=== PATIENT | female | born 1995 | race Two or more races ===

== ENCOUNTER 2016-10-13 07:06 | Emergency (ER) | payer BC, OTHER ==
[2016-10-13 07:12] VITALS: RESP 18; TEMP 98.2
[2016-10-13] MEDS ORDERED: SODIUM CHLORIDE 0.9% 500 ML IV ONE (08:15)
[2016-10-13] MEDS ORDERED: ACETAMINOPHEN IV (For NPO) 1,000 MG in EMPTY BAG 1 BAG IVPB STA (08:16)
--- NOTE | 2016-10-13 08:22 | ED ---
Female Urogenital HPI - General Chief complaint: Vaginal Bleeding Stated complaint: Poss.miscarriage Time Seen by Provider: 10/13/16 07:30 Source: patient, family, RN notes reviewed Mode of arrival: ambulatory Limitations: no limitations - History of Present Illness Initial comments: This is a 21-year-old female who is currently approximately 8-9 weeks who states she woke up this morning around 6 AM with the feeling of wetness in her vaginal region she looked at it was bright and dark red blood. He's had some lower abdominal cramps that are mild nature no dysuria no hematuria no nausea vomiting diarrhea or other symptoms. This is her first . She states she did have a evaluation and her beta number was [phone] I had done apparently yesterday. No other complaints at this time MD Complaint: vaginal bleeding Last Menstrual Period: 08/19/16 - Related Data Home Medications Medication Instructions Recorded Confirmed Gummies 2 tab PO DAILY 10/13/16 10/13/16 Allergies Allergy/AdvReac Type Severity Reaction Status Date / Time peanut Allergy Anaphylaxis Verified 10/13/16 07:36 procaine HCl [From Novocain] Allergy Swelling Verified 10/13/16 07:36 Review of Systems ROS Statement: Those systems with pertinent positive or pertinent negative responses have been documented in the HPI. ROS Other: All systems not noted in ROS Statement are negative. Past Medical History Past Medical History: No Reported History History of Any Multi-Drug Resistant Organisms: None Reported Past Surgical History: Cholecystectomy Past Psychological History: No Psychological Hx Reported Smoking Status: Former smoker Past Alcohol Use History: Occasional Past Drug Use History: None Reported General Exam - General Exam Comments Initial Comments: This is a well-developed well-nourished awake alert oriented 3 female Limitations: no limitations General appearance: alert, in no apparent distress Head exam: Present: atraumatic, normocephalic, normal inspection Eye exam: Present: normal appearance, PERRL, EOMI. Absent: scleral icterus, conjunctival injection, periorbital swelling ENT exam: Present: normal exam, mucous membranes moist Neck exam: Present: normal inspection. Absent: tenderness, meningismus, lymphadenopathy Respiratory exam: Present: normal lung sounds bilaterally. Absent: respiratory distress, wheezes, rales, rhonchi, stridor Cardiovascular Exam: Present: regular rate, normal rhythm, normal heart sounds. Absent: systolic murmur, diastolic murmur, rubs, gallop, clicks GI/Abdominal exam: Present: soft, tenderness (Very mild lower suprapubic tenderness to palpation no guarding no rebound), normal bowel sounds. Absent: distended, guarding, rebound, rigid, mass, bruit, pulsatile mass, hernia Rectal exam: Present: deferred External exam: Present: normal external exam Speculum exam: Present: vaginal bleeding (The cervical os appears be closer is some bloody discharge noted. No cervical motion tenderness. The cervix appears be normal and no evidence of any abnormal discharges other than the blood.) Extremities exam: Present: normal inspection, full ROM, normal capillary refill. Absent: tenderness, pedal edema, joint swelling, calf tenderness Back exam: Present: normal inspection Neurological exam: Present: alert, oriented X3, CN II-XII intact Psychiatric exam: Present: normal affect, normal mood Skin exam: Present: warm, dry, intact, normal color. Absent: rash Course Vital Signs 10/13/16 07:10 Temperature 98.2 F Pulse Rate 89 Respiratory 18 Rate Blood Pressure 128/72 O2 Sat by Pulse 100 Oximetry Medical Decision Making - Medical Decision Making A patient will be discharged to follow-up with her EXPLOSIVE ORDNANCE DISPOSAL SPECIALIST who is in [facility]. - Lab Data Result diagrams: 10/13/16 08:00 10/13/16 08:00 Lab Results 10/13/16 10/13/16 10/13/16 Range/Units 08:00 08:00 08:00 WBC 10.1 (3.8-10.6) k/uL RBC 4.63 (3.80-5.40) m/uL Hgb 14.6 (11.4-16.0) gm/dL Hct 42.9 (34.0-46.0) % MCV 92.7 (80.0-100.0) fL MCH 31.5 (25.0-35.0) pg MCHC 34.0 (31.0-37.0) g/dL RDW 12.4 (11.5-15.5) % Plt Count 297 (150-450) k/uL Neutrophils % 70 % Lymphocytes % 21 % Monocytes % 6 % Eosinophils % 1 % Basophils % 1 % Neutrophils # 7.1 (1.3-7.7) k/uL Lymphocytes # 2.1 (1.0-4.8) k/uL Monocytes # 0.6 (0-1.0) k/uL Eosinophils # 0.1 (0-0.7) k/uL Basophils # 0.1 (0-0.2) k/uL Sodium 139 (137-145) mmol/L Potassium 4.1 (3.5-5.1) mmol/L Chloride 105 (98-107) mmol/L Carbon Dioxide 22 (22-30) mmol/L Anion Gap 12 mmol/L BUN 9 (7-17) mg/dL Creatinine 0.71 (0.52-1.04) mg/dL Est GFR (MDRD) Af Amer >60 (>60 ml/min/1.73 sqM) Est GFR (MDRD) Non-Af >60 (>60 ml/min/1.73 sqM) Glucose 83 (74-99) mg/dL Calcium 9.4 (8.4-10.2) mg/dL Total Bilirubin 0.5 (0.2-1.3) mg/dL AST 28 (14-36) U/L ALT 57 H (9-52) U/L Alkaline Phosphatase 75 (38-126) U/L Total Protein 6.9 (6.3-8.2) g/dL Albumin 4.0 (3.5-5.0) g/dL HCG, Quant 59490.4 mIU/mL Urine Color Yellow Urine Appearance Clear (Clear) Urine pH 5.5 (5.0-8.0) Ur Specific [place] 1.018 (1.001-1.035) Urine Protein Negative (Negative) Urine Glucose (UA) Negative (Negative) Urine Ketones Negative (Negative) Urine Blood Moderate H (Negative) Urine Nitrate Negative (Negative) Urine Bilirubin Negative (Negative) Urine Urobilinogen <2.0 (<2.0) mg/dL Ur Leukocyte Esterase Negative (Negative) Urine RBC <1 (0-5) /hpf Urine WBC 1 (0-5) /hpf Ur Squamous Epith Cells 1 (0-4) /hpf Urine Mucus Rare H (None) /hpf Blood Type Blood Type Recheck 10/13/16 Range/Units 08:00 WBC (3.8-10.6) k/uL RBC (3.80-5.40) m/uL Hgb (11.4-16.0) gm/dL Hct (34.0-46.0) % MCV (80.0-100.0) fL MCH (25.0-35.0) pg MCHC (31.0-37.0) g/dL RDW (11.5-15.5) % Plt Count (150-450) k/uL Neutrophils % % Lymphocytes % % Monocytes % % Eosinophils % % Basophils % % Neutrophils # (1.3-7.7) k/uL Lymphocytes # (1.0-4.8) k/uL Monocytes # (0-1.0) k/uL Eosinophils # (0-0.7) k/uL Basophils # (0-0.2) k/uL Sodium (137-145) mmol/L Potassium (3.5-5.1) mmol/L Chloride (98-107) mmol/L Carbon Dioxide (22-30) mmol/L Anion Gap mmol/L BUN (7-17) mg/dL Creatinine (0.52-1.04) mg/dL Est GFR (MDRD) Af Amer (>60 ml/min/1.73 sqM) Est GFR (MDRD) Non-Af (>60 ml/min/1.73 sqM) Glucose (74-99) mg/dL Calcium (8.4-10.2) mg/dL Total Bilirubin (0.2-1.3) mg/dL AST (14-36) U/L ALT (9-52) U/L Alkaline Phosphatase (38-126) U/L Total Protein (6.3-8.2) g/dL Albumin (3.5-5.0) g/dL HCG, Quant mIU/mL Urine Color Urine Appearance (Clear) Urine pH (5.0-8.0) Ur Specific [place] (1.001-1.035) Urine Protein (Negative) Urine Glucose (UA) (Negative) Urine Ketones (Negative) Urine Blood (Negative) Urine Nitrate (Negative) Urine Bilirubin (Negative) Urine Urobilinogen (<2.0) mg/dL Ur Leukocyte Esterase (Negative) Urine RBC (0-5) /hpf Urine WBC (0-5) /hpf Ur Squamous Epith Cells (0-4) /hpf Urine Mucus (None) /hpf Blood Type O Positive Blood Type Recheck No - Radiology Data Radiology results: report reviewed (I did review the imaging and the initial report was reviewed the final x-ray report was pending. There is a viable intrauterine 7 weeks 4 days the uterine sac is noted in the mid uterus is of the normal upper uterine segment heartbeat 1 63 bpm normal rhythm. 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 Pelvic rest and no heavy lifting.
[2016-10-13 08:31] LABS: Basophils # (A) 0.1 k/uL (0-0.2); Basophils % (A) 1 %; CH 32.6; CHCM 35.4; Eosinophils # (A) 0.1 k/uL (0-0.7); Eosinophils % (A) 1 %; HCT 42.9 % (34.0-46.0); HDW 2.59; HGB 14.6 gm/dL (11.4-16.0); Luc # (Auto) 0.11; Luc % (Auto) 1; Lymphocytes # (A) 2.1 k/uL (1.0-4.8); Lymphocytes % (A) 21 %; MCH 31.5 pg (25.0-35.0); MCV 92.7 fL (80.0-100.0); Mean Platelet Volume 7.8; Monocytes # (A) 0.6 k/uL (0-1.0); Monocytes % (A) 6 %; Neutrophils # (A) 7.1 k/uL (1.3-7.7); Neutrophils % (A) 70 %; RBC 4.63 m/uL (3.80-5.40); RDW 12.4 % (11.5-15.5); WBC 10.1 k/uL (3.8-10.6); WBC (Perox) 10.51
[2016-10-13 08:36] LABS: Appearance,Urine Clear (Clear); Bilirubin,Urine Negative (Negative); Glucose,Urine (UA) Negative (Negative); Ketones,Urine Negative (Negative); Leukocyte Esterase,Urine Negative (Negative); Mucus,Urine Rare /hpf; Nitrite,Urine Negative (Negative); PH, Urine 5.5 (5.0-8.0); Particle Count 3265; Protein,Urine Negative (Negative); RBC,Urine <1 /hpf (0-5); Specific Gravity,Urine 1.018 (1.001-1.035); Squamous Epithelial Cell,Urine 1 /hpf (0-4); UA Billing (MACRO vs. MICRO) MICRO; Urobilinogen,Urine <2.0 mg/dL (<2.0); WBC,Urine 1 /hpf (0-5)
[2016-10-13 08:45] LABS: ALT 57 U/L (9-52); AST 28 U/L (14-36); Alkaline Phosphatase 75 U/L (38-126); Anion Gap 12 mmol/L; Blood Urea Nitrogen 9 mg/dL (7-17); Calcium 9.4 mg/dL (8.4-10.2); Carbon Dioxide 22 mmol/L (22-30); Chloride 105 mmol/L (98-107); Glucose 83 mg/dL (74-99); Non-African American GFR(MDRD) >60 (>60 ml/min/1.73 sqM); Potassium 4.1 mmol/L (3.5-5.1); Sodium 139 mmol/L (137-145); Total Bilirubin 0.5 mg/dL (0.2-1.3); Total Protein 6.9 g/dL (6.3-8.2)
[2016-10-13 09:30] LABS: HCG,Quantitative Serum 44688.4 mIU/mL
--- NOTE | 2016-10-13 10:43 | US ---
EXAMINATION TYPE: US OB <= 14 wk fetus DATE OF EXAM: 10/13/2016 9:06 AM COMPARISON: NONE CLINICAL HISTORY: EC patient presented with vaginal bleeding and pelvic cramping today; . Pregnan cy EXAM PERFORMED: Transvaginal (TV) and Transabdominal (TA) EXAM MEASUREMENTS: GESTATIONAL AGE / DATING Physician Established: not established Dates by LMP: ( 7 weeks/6 days) EDC: 05/26/2017 Dates by First Scan: today Dates by Current Scan: (7 weeks/ 4 days) EDC: 05/28/2017 MATERNAL ANATOMY Uterus: 8.3 x 6.6 x 4.6cm; small Nabothian cyst noted in CX = 0.3 x 0.3 x 0.2 Right Ovary: 3.5 c 1.1 x 1.8cm Left Ovary: 3.2 x 3.1 x 2.1cm Post CDS / Adnexa: normal Presence of free fluid: no Presence of corpus luteal cyst: noted in left ovary = 2.3 x 1.6 x 1.7cm Presence of subchorionic bleed: small complex hypoechoic area noted upper subchorion level = 0.5 x 1. 0 x 0.7cm GESTATION / SURVEY CRL: 1.5cm (7 weeks/4 days) Gestational Sac is noted mid uterus instead of at normal upper uterine segment Yolk Sac (normal less than 6mm): 3.7mm Heart Rate: 163 bpm Rhythm: Normal IUP: Viable IUP Date of LMP: 08/19/2016 Beta HcG (if available): Not assessed by EC TECHNOLOGIST IMPRESSION: Single, live IUP noted mid uterus,7 weeks/ 4 days, EDC: 05/28/2017, with possible small AMALIA; HR 163bpm. Transabdominal pelvic ultrasound scanning performed, endovaginal scanning performed for better evalua tion of the . Grayscale, color Doppler imaging performed over the ovaries, color flow noted to the ovaries. IMPRESSION: Single viable intrauterine corresponding to an ultrasound age of 7 weeks 4 days with estima bryce date delivery first of May 2017 by today's exam. Small subchorionic hemorrhage is suspected .
[2016-10-13 10:47] VITALS: BP 111/70; PULSE 74
== END 2016-10-13 11:06 | disposition home or self-care (01) ==
LOC: EC 07:06
DX: O20.0 Threatened abortion (principal); Z3A.01 Less than 8 weeks gestation of pregnancy; Z88.8 Allergy status to other drugs, medicaments and biological substances; Z91.010 Allergy to peanuts; Z87.891 Personal history of nicotine dependence
CPT/HCPCS: 36415; 86900; 86901; 80053; 85025; 81001; 84702; 76801; 76817; 96365; 96361; 99284; J0131

== ENCOUNTER 2019-01-21 13:41 | Emergency (ER) | payer BC, OTHER ==
[2019-01-21 13:47] VITALS: BP 121/72; TEMP 97.9
[2019-01-21] MEDS ORDERED: DEXAMETHASONE SOD PHOSPHATE 10 MG/ML 1 ML VIAL IV STA (14:10)
[2019-01-21] MEDS ORDERED: METOCLOPRAMIDE 5 MG/ML 2 ML VIAL IVP STA (14:10)
[2019-01-21] MEDS ORDERED: diphenhydrAMINE 50 MG/ML 1 ML VIAL IVP STA (14:10)
[2019-01-21] MEDS ORDERED: FLUORESCEIN STRIPS 1 MG STRIP RIGHT EYE ONE (14:10)
[2019-01-21] MEDS ORDERED: KETOROLAC 30 MG/ML 1 ML VIAL IVP STA (14:10)
[2019-01-21] MEDS ORDERED: SODIUM CHLORIDE 0.9% 1,000 ML IV ONE (14:10)
[2019-01-21] MEDS ORDERED: PROPARACAINE 0.5% OPHTH DROPS 15 ML BTL BOTH EYES SCH (14:15)
[2019-01-21 14:25] VITALS: PULSE 59; RESP 16
--- NOTE | 2019-01-21 14:42 | ED ---
Eye Problem HPI - General Chief complaint: Eye Problems Stated complaint: Eye Issue Time Seen by Provider: 01/21/19 14:00 Source: patient Mode of arrival: ambulatory Limitations: no limitations - History of Present Illness Initial comments: Patient is a 23-year-old female presents with a chief complaint of a headache that started yesterday. She characterizes an ache with sharp pain behind the eye. She did not identify any inciting incidences. There are no aggravating or alleviating factors. Patient states that she has bad vision at baseline and has where contact lenses. She currently does not have them in. She cannot identify any injury to the eye. Not had any previous similar headaches. MD chief complaint: eye pain - Related Data Previous Rx's Medication Instructions Recorded Tobramycin 0.3% Ophth Soln [Tobrex 1 - 2 drop BOTH EYES Q6H 5 Days ml 01/21/19 0.3% Ophth Soln] Allergies Allergy/AdvReac Type Severity Reaction Status Date / Time peanut Allergy Anaphylaxis Verified 01/21/19 13:54 procaine HCl [From Novocain] Allergy Swelling Verified 01/21/19 13:54 Latex, Natural Rubber AdvReac Swelling Verified 01/21/19 13:55 Review of Systems ROS Statement: Those systems with pertinent positive or pertinent negative responses have been documented in the HPI. ROS Other: All systems not noted in ROS Statement are negative. Neurological: Reports: headache Past Medical History Past Medical History: No Reported History History of Any Multi-Drug Resistant Organisms: None Reported Past Surgical History: Cholecystectomy Past Psychological History: No Psychological Hx Reported Smoking Status: Current every day smoker Past Alcohol Use History: Occasional Past Drug Use History: None Reported General Exam Limitations: no limitations General appearance: alert, in no apparent distress Head exam: Present: atraumatic, normocephalic Eye exam: Present: PERRL, EOMI, conjunctival injection, other (Patient has moderate photosensitivity on exam) Pupils: Present: normal accommodation ENT exam: Present: normal exam Neck exam: Present: normal inspection Respiratory exam: Present: normal lung sounds bilaterally. Absent: respiratory distress, wheezes Cardiovascular Exam: Present: regular rate, normal rhythm GI/Abdominal exam: Present: soft. Absent: distended, tenderness Rectal exam: Present: deferred Extremities exam: Present: normal inspection Back exam: Present: normal inspection Neurological exam: Present: alert, oriented X3, CN II-XII intact, normal gait Psychiatric exam: Present: normal affect, normal mood Skin exam: Present: warm, dry, intact Course Vital Signs 01/21/19 01/21/19 13:44 14:24 Temperature 97.9 F Pulse Rate 64 59 L Respiratory 18 16 Rate Blood Pressure 121/72 O2 Sat by Pulse 100 100 Oximetry Medical Decision Making - Medical Decision Making Patient presents with chief complaint of a right-sided headache that he states is behind her eye. On initial evaluation, vitals are stable, patient is in no distress. Patient will be evaluated with visual acuity, fluorescein stain, intraocular pressure is, we treated with sublingual oxygen as cluster headache is considered. Patient given an headache cocktail. 3:12 PM Reevaluation, the patient states that the headache is mildly improved with supplemental oxygen. Visual acuity is as follows: Uncorrected, right eye 20/200, left eye 20/200, both eyes 20/200. Corrected, right eye 20/40, left eye 20/15, both eyes 20/15. 3:56 PM Intraocular pressures are 23 OD, and 21 OS. After proparacaine was placed in the eye, patient states that she felt near immediate relief. Fluorescein stain shows a corneal abrasion at the 3 o'clock position of the right eye. At this time, patient stable for discharge. She was instructed to follow up with primary care and ophthalmology in one to 2 days, return to ED if symptoms worsen or change. She was instructed to throw out her current pair of contact lenses, was prescribed tobramycin eyedrops for 5 days. Disposition Clinical Impression: Corneal abrasion, Headache Disposition: HOME SELF-CARE Condition: Good Instructions (If sedation given, give patient instructions): Eye Foreign Body (ED) Prescriptions: Tobramycin 0.3% Ophth Soln [Tobrex 0.3% Ophth Soln] 1 - 2 drop BOTH EYES Q6H 5 Days ml Is patient prescribed a controlled substance at d/c from ED?: No Referrals: Alyssa Castro MD [STAFF PHYSICIAN] - 1-2 days Anne Dao MD [STAFF PHYSICIAN] - 1-2 days
== END 2019-01-21 16:07 | disposition home or self-care (01) ==
LOC: EC 13:41
DX: S05.01XA Injury of conjunctiva and corneal abrasion without foreign body, right eye, initial encounter (principal); G44.009 Cluster headache syndrome, unspecified, not intractable; H53.9 Unspecified visual disturbance; F17.200 Nicotine dependence, unspecified, uncomplicated; Z88.4 Allergy status to anesthetic agent; Z91.010 Allergy to peanuts; Z91.040 Latex allergy status; Z97.3 Presence of spectacles and contact lenses; X58.XXXA Exposure to other specified factors, initial encounter
CPT/HCPCS: 99283; 96374; 96375 ×3; J1200; J1100; J2765; J1885

== ENCOUNTER 2019-05-18 14:13 | Inpatient (IN) | payer OTHER ==
[2019-05-18] MEDS ORDERED: MORPHINE SULFATE 4 MG/ML SYRINGE IV STA (14:57)
[2019-05-18] MEDS ORDERED: SODIUM CHLORIDE 0.9% 1,000 ML IV STA (14:57)
[2019-05-18] MEDS ORDERED: ONDANSETRON 4 MG/2 ML VIAL IVP STA ×2 (14:57→20:31)
[2019-05-18] MEDS ORDERED: PANTOPRAZOLE 40 MG/10 ML VIAL IVP STA (14:57)
[2019-05-18 15:20] LABS: Appearance,Urine Clear (Clear); Bilirubin,Urine Negative (Negative); Blood,Urine Negative (Negative); Color,Urine Yellow; Glucose,Urine (UA) Negative (Negative); Ketones,Urine Negative (Negative); Leukocyte Esterase,Urine Negative (Negative); Nitrite,Urine Negative (Negative); PH, Urine 5.5 (5.0-8.0); Protein,Urine Negative (Negative); Specific Gravity,Urine 1.027 (1.001-1.035); Urobilinogen,Urine <2.0 mg/dL (<2.0)
[2019-05-18 15:23] LABS: ALT 36 U/L (9-52); AST 37 U/L (14-36); African American GFR (CKD) >90 (>60 ml/min/1.73 sqM); Albumin 4.6 g/dL (3.5-5.0); Alkaline Phosphatase 81 U/L (38-126); Anion Gap 12 mmol/L; Blood Urea Nitrogen 13 mg/dL (7-17); Calcium 9.7 mg/dL (8.4-10.2); Carbon Dioxide 22 mmol/L (22-30); Chloride 106 mmol/L (98-107); Glucose 90 mg/dL (74-99); Potassium 4.3 mmol/L (3.5-5.1); Sodium 140 mmol/L (137-145); Total Bilirubin 0.6 mg/dL (0.2-1.3); Total Protein 7.9 g/dL (6.3-8.2)
--- NOTE | 2019-05-18 15:28 | ED ---
General Adult HPI - General Chief complaint: Abdominal Pain Stated complaint: abdominal pain Time Seen by Provider: 05/18/19 14:45 Source: patient, RN notes reviewed, old records reviewed Mode of arrival: ambulatory Limitations: no limitations - History of Present Illness Initial comments: 24-year-old female patient with past medical history of cholecystectomy procedure complaining of epigastric abdominal pain. Patient reports that the pain is very sharp and stabbing. Patient course that has waxed and waned since this morning. Patient reports OF nausea and emesis. Denies any chance of being . Denies any chest pain shortness of breath. Denies any other complaints at this time. Systemic: Pt denies fatigue, fever/chills, rash. Pt denies weakness, night sweats, weight loss. Neuro: Pt denies headache, visual disturbances, syncope or pre-syncope. HEENT: Pt denies ocular discharge or irritation, otalgia, rhinorrhea, pharyngitis or notable lymphadenopathy. Cardiopulmonary: Pt denies chest pain, SOB, heart palpitations, dyspnea on exe rtion. Abdominal/GI: Pt denies n/v/d. : Pt denies dysuria, burning w/ urination, frequency/urgency. Denies new onset urinary or bowel incontinence. MSK: Pt denies myalgia, loss of strength or function in extremities. Neuro: Pt denies new onset weakness, paresthesias. - Related Data Previous Rx's Medication Instructions Recorded Tobramycin 0.3% Ophth Soln [Tobrex 1 - 2 drop BOTH EYES Q6H 5 Days ml 01/21/19 0.3% Ophth Soln] Allergies Allergy/AdvReac Type Severity Reaction Status Date / Time peanut Allergy Anaphylaxis Verified 05/18/19 14:25 procaine HCl [From Novocain] Allergy Swelling Verified 05/18/19 14:25 Latex, Natural Rubber AdvReac Swelling Verified 05/18/19 14:25 Review of Systems ROS Statement: Those systems with pertinent positive or pertinent negative responses have been documented in the HPI. ROS Other: All systems not noted in ROS Statement are negative. Past Medical History Past Medical History: No Reported History History of Any Multi-Drug Resistant Organisms: None Reported Past Surgical History: Cholecystectomy Additional Past Surgical History / Comment(s): laprascopy Past Psychological History: No Psychological Hx Reported Smoking Status: Former smoker Past Alcohol Use History: Occasional Past Drug Use History: None Reported General Exam - General Exam Comments Initial Comments: Constitutional: NAD, AOX3, Pt has pleasant affect. HEENT: NC/AT, trachea midline, neck supple, no lymphadenopathy. Posterior pharynx non erythematous, without exudates. External ears appear normal, without discharge. Mucous membranes moist. Eyes PERRLA, EOM intact. There is no scleral icterus. No pallor noted. Cardiopulmonary: RRR, no murmurs, rubs or gallops, no JVD noted. Lungs CTAB in anterior and posterior snow. No peripheral edema. Abdominal exam: Abdomen soft and non-distended. Abdomen mildly tender to palpation in epigastric region, Frances sign negative, no other areas of abdominal tenderness.. Bowel sounds active in LLQ. No hepatosplenomegaly. No ecchymosis Neuro: CN II-XII grossly intact. No nuchal rigidity. No raccon eyes, no martines sign, no hemotympanum. No cervical spinal tenderness. MSK: No posterior calf tenderness bilaterally, homans sign negative bilaterally. Posterior tibialis and radial pulse +2 bilaterally. Sensation intact in upper and lower extremities. Full active ROM in upper and lower extremities, 5/5 stregnth. Limitations: no limitations Course Vital Signs 05/18/19 14:22 Temperature 97.8 F Pulse Rate 85 Respiratory 18 Rate Blood Pressure 127/65 O2 Sat by Pulse 98 Oximetry Medical Decision Making - Medical Decision Making 24-year-old female patient with past medical history of cholecystectomy proced ure complaining of epigastric abdominal pain. Patient reports that the pain is very sharp and stabbing. Patient course that has waxed and waned since this morning. Patient reports OF nausea and emesis. Denies any chance of being . Denies any chest pain shortness of breath. Denies any other complaints at this time. Patient vital signs stable, afebrile. Physical exam displayed: Abdomen soft and non-distended. Abdomen mildly tender to palpation in epigastric region, Frances sign negative, no other areas of abdominal tenderness. Laboratory investigations revealed mild leukocytosis of 11.0. CMP, UA negative. CK-MB pelvis displayed focal small bowel obstruction. Patient actively vomiting. Patient be admitted for IV fluids, nothing by mouth and further evaluation. Case discussed with Ayana lopez. - Lab Data Result diagrams: 05/18/19 15:00 05/18/19 15:00 Lab Results 05/18/19 05/18/19 05/18/19 Range/Units 15:00 15:00 15:00 WBC 11.0 H (3.8-10.6) k/uL RBC 4.97 (3.80-5.40) m/uL Hgb 15.8 (11.4-16.0) gm/dL Hct 46.1 H (34.0-46.0) % MCV 92.9 (80.0-100.0) fL MCH 31.8 (25.0-35.0) pg MCHC 34.2 (31.0-37.0) g/dL RDW 11.9 (11.5-15.5) % Plt Count 297 (150-450) k/uL Neutrophils % 67 % Lymphocytes % 23 % Monocytes % 7 % Eosinophils % 1 % Basophils % 1 % Neutrophils # 7.4 (1.3-7.7) k/uL Lymphocytes # 2.5 (1.0-4.8) k/uL Monocytes # 0.7 (0-1.0) k/uL Eosinophils # 0.1 (0-0.7) k/uL Basophils # 0.1 (0-0.2) k/uL Sodium 140 (137-145) mmol/L Potassium 4.3 (3.5-5.1) mmol/L Chloride 106 (98-107) mmol/L Carbon Dioxide 22 (22-30) mmol/L Anion Gap 12 mmol/L BUN 13 (7-17) mg/dL Creatinine 0.76 (0.52-1.04) mg/dL Est GFR (CKD-EPI)AfAm >90 (>60 ml/min/1.73 sqM) Est GFR (CKD-EPI)NonAf >90 (>60 ml/min/1.73 sqM) Glucose 90 (74-99) mg/dL Plasma Lactic Acid Leonardo (0.7-2.0) mmol/L Calcium 9.7 (8.4-10.2) mg/dL Total Bilirubin 0.6 (0.2-1.3) mg/dL AST 37 H (14-36) U/L ALT 36 (9-52) U/L Alkaline Phosphatase 81 (38-126) U/L Total Protein 7.9 (6.3-8.2) g/dL Albumin 4.6 (3.5-5.0) g/dL Lipase 56 (23-300) U/L Urine Color Urine Appearance (Clear) Urine pH (5.0-8.0) Ur Specific [place] (1.001-1.035) Urine Protein (Negative) Urine Glucose (UA) (Negative) Urine Ketones (Negative) Urine Blood (Negative) Urine Nitrite (Negative) Urine Bilirubin (Negative) Urine Urobilinogen (<2.0) mg/dL Ur Leukocyte Esterase (Negative) Urine HCG, Qual Not Detected (Not Detectd) 05/18/19 05/18/19 Range/Units 15:00 15:00 WBC (3.8-10.6) k/uL RBC (3.80-5.40) m/uL Hgb (11.4-16.0) gm/dL Hct (34.0-46.0) % MCV (80.0-100.0) fL MCH (25.0-35.0) pg MCHC (31.0-37.0) g/dL RDW (11.5-15.5) % Plt Count (150-450) k/uL Neutrophils % % Lymphocytes % % Monocytes % % Eosinophils % % Basophils % % Neutrophils # (1.3-7.7) k/uL Lymphocytes # (1.0-4.8) k/uL Monocytes # (0-1.0) k/uL Eosinophils # (0-0.7) k/uL Basophils # (0-0.2) k/uL Sodium (137-145) mmol/L Potassium (3.5-5.1) mmol/L Chloride (98-107) mmol/L Carbon Dioxide (22-30) mmol/L Anion Gap mmol/L BUN (7-17) mg/dL Creatinine (0.52-1.04) mg/dL Est GFR (CKD-EPI)AfAm (>60 ml/min/1.73 sqM) Est GFR (CKD-EPI)NonAf (>60 ml/min/1.73 sqM) Glucose (74-99) mg/dL Plasma Lactic Acid Leonardo 1.5 (0.7-2.0) mmol/L Calcium (8.4-10.2) mg/dL Total Bilirubin (0.2-1.3) mg/dL AST (14-36) U/L ALT (9-52) U/L Alkaline Phosphatase (38-126) U/L Total Protein (6.3-8.2) g/dL Albumin (3.5-5.0) g/dL Lipase (23-300) U/L Urine Color Yellow Urine Appearance Clear (Clear) Urine pH 5.5 (5.0-8.0) Ur Specific [place] 1.027 (1.001-1.035) Urine Protein Negative (Negative) Urine Glucose (UA) Negative (Negative) Urine Ketones Negative (Negative) Urine Blood Negative (Negative) Urine Nitrite Negative (Negative) Urine Bilirubin Negative (Negative) Urine Urobilinogen <2.0 (<2.0) mg/dL Ur Leukocyte Esterase Negative (Negative) Urine HCG, Qual (Not Detectd) Disposition Clinical Impression: Small bowel obstruction Disposition: ADMITTED IP TO THIS [facility] Condition: Fair Is patient prescribed a controlled substance at d/c from ED?: No Referrals: None,Stated [Primary Care Provider] - 1-2 days
[2019-05-18 15:30] LABS: Basophils # (A) 0.1 k/uL (0-0.2); Basophils % (A) 1 %; Eosinophils # (A) 0.1 k/uL (0-0.7); Eosinophils % (A) 1 %; HCT 46.1 % (34.0-46.0); HGB 15.8 gm/dL (11.4-16.0); Lymphocytes # (A) 2.5 k/uL (1.0-4.8); Lymphocytes % (A) 23 %; MCH 31.8 pg (25.0-35.0); MCHC 34.2 g/dL (31.0-37.0); MCV 92.9 fL (80.0-100.0); Mean Platelet Volume 7.1; Monocytes # (A) 0.7 k/uL (0-1.0); Monocytes % (A) 7 %; Neutrophils # (A) 7.4 k/uL (1.3-7.7); Neutrophils % (A) 67 %; Platelet Count 297 k/uL (150-450); RBC 4.97 m/uL (3.80-5.40); RDW 11.9 % (11.5-15.5)
--- NOTE | 2019-05-18 16:17 | CT ---
EXAMINATION TYPE: CT abdomen pelvis w con DATE OF EXAM: 05/18/2019 HISTORY: Mid abdominal pain with nausea and vomiting. CT DLP: 55mGycm Automated Exposure Control for Dose Reduction was Utilized. CONTRAST: CT scan of the abdomen and pelvis is performed without oral but with IV Contrast, patient injected wi th 100 mL of Isovue 300. COMPARISON: CT abdomen and pelvis June 16, 2013 FINDINGS: LUNG BASES: No significant abnormality is appreciated. LIVER/GB: Cholecystectomy clips are redemonstrated. PANCREAS: No significant abnormality is seen. SPLEEN: No significant abnormality is seen. ADRENALS: No significant abnormality is seen. KIDNEYS: No significant abnormality is seen. BOWEL: Evaluation of bowel is suboptimal secondary to lack of enteric contrast. No suspicious dilatat ion of stomach or duodenal sweep. There are prominent dilated small bowel loops that are fluid filled and fecal filled in the left mid abdomen. Bowel loops are dilated up to 3.5 cm. Bowel prominence beg ins just past ligament of Treitz with distal transition anterior left mid abdomen axial image 54 with there are nondilated small bowel loops that show [id number] wall thickening. Ileal loops are c ollapsed in the right abdomen. Fecal material is seen in nondistended colon along the periphery. No s uspicious mesenteric swirling or edema to suggest internal hernia. UTERUS/ADNEXA: Slightly retroverted uterus is seen. There is 4.4 cm left pelvic or ovarian low dense lesion lesion favoring simple simple thin-walled cyst axial image 69, this can be further investigate d and characterized with pelvic ultrasound if desired. LYMPH NODES: No greater than 1cm abdominal or pelvic lymph nodes are appreciated. OSSEOUS STRUCTURES: No significant abnormality is seen. OTHER: No significant additional abnormality is seen. IMPRESSION: There is focal small bowel obstruction favored partial could be due to more distal enteri tis or adhesions. Currently not causing significant distention of stomach or duodenal sweep.
[2019-05-18] MEDS ORDERED: MORPHINE SULFATE 4 MG/ML SYRINGE IV PRN (17:57)
[2019-05-18] MEDS ORDERED: NALOXONE 0.4 MG/ML 1 ML VIAL IV PRN (17:57)
[2019-05-18] MEDS ORDERED: ONDANSETRON 4 MG/2 ML VIAL IVP PRN (17:57)
[2019-05-18] MEDS: SODIUM CHLORIDE 0.9% 1,000 ML IV SCH (18:10)
[2019-05-18 20:04] VITALS: BMI 38.9
[2019-05-18] MEDS: MORPHINE SULFATE 4 MG/ML SYRINGE IV PRN (21:53)
[2019-05-18] MEDS ORDERED: METOCLOPRAMIDE 5 MG/ML 2 ML VIAL IVP PRN (22:38)
[2019-05-18] MEDS ORDERED: HYDROcodone/APAP 5-325MG 1 EACH TAB PO PRN (23:08)
[2019-05-18] MEDS ORDERED: TEMAZEPAM 15 MG CAP PO PRN (23:08)
[2019-05-18] MEDS ORDERED: ACETAMINOPHEN TAB 500 MG TAB PO PRN (23:08)
[2019-05-18] MEDS ORDERED: ALPRAZolam 0.25 MG TAB PO PRN (23:08)
[2019-05-19] MEDS: SODIUM CHLORIDE 0.9% 1,000 ML IV SCH ×2 (03:03→09:26)
--- NOTE | 2019-05-19 05:46 | HP ---
HISTORY AND PHYSICAL CHIEF COMPLAINT: Abdominal pain. HISTORY OF PRESENT ILLNESS: This 24-year-old woman with a past medical history of cholecystectomy a few years ago after HIDA scan being followed by Dr. Tineo in the outpatient setting was complaining of abdominal pain. The pain was situated in the epigastrium and as well as right upper quadrant. The pain was increasing in intensity as well as some nausea. The patient had some bowel movements. Patient came to [facility] admitted for further evaluation and treatment. A CAT scan of the abdomen at the time of admission showed possible focal small-bowel obstruction or possible distal enteritis or adhesions. There is no history of any fever, rigors. No history of headache, loss of consciousness or seizures at this time. PAST MEDICAL HISTORY: Cholecystectomy, laparoscopy, previous history of smoking. MEDICATIONS: Home medications are Obdulia. ALLERGIES: Allergies are NOVOCAIN. FAMILY HISTORY: No history of heart disease or strokes in the family. SOCIAL HISTORY: Previous history of smoking. Occasional alcohol and THC. REVIEW OF SYSTEMS: ENT: No diminished hearing or diminished vision. CARDIOVASCULAR SYSTEM: No angina, palpitations. RESPIRATORY SYSTEM: No cough or hemoptysis. GI: As mentioned earlier. : No dysuria. NERVOUS SYSTEM: No numbness or weakness. ALLERGY/IMMUNOLOGY: No asthma or hayfever. MUSCULOSKELETAL: No history of arthritis. CONSTITUTIONAL: As mentioned earlier. DERMATOLOGY: Negative. RHEUMATOLOGY: Negative. PSYCHIATRY: As mentioned earlier. PHYSICAL EXAMINATION: Patient is alert and oriented x3. Pulse is 56, blood pressure 113/73, respirations 16, temperature 97.5, pulse ox 98% on room air. HEENT: Conjunctivae normal. Oral mucosa moist. NECK is no jugular venous distention. No carotid bruit. No lymph node enlargement. CARDIOVASCULAR: S1, S2 muffled. No S3, no S4. RESPIRATORY: Breath sounds diminished at the bases. No rhonchi. No crackles. ABDOMEN: Soft, obese, mild diffuse tenderness in the right upper quadrant present. No guarding. No rigidity. No mass palpable. No ascites. Bowel sounds present. LEGS: No edema, no swelling. NERVOUS SYSTEM: Higher function as mentioned earlier. Moves all 4 limbs. No focal motor or sensory deficits. LYMPHATICS: No lymphadenopathy of the neck, axillae or groin. SKIN: No ulcer, rash or bleeding. JOINTS: No active deforming arthropathy. LABS: WBC 11, hemoglobin 15.8. AST is 37. ASSESSMENT: 1. Right upper quadrant abdominal pain, rule out small-bowel obstruction. 2. Increased WBC. 3. History of laparoscopic cholecystectomy. 4. History of laparoscopy. 5. Remote history of nicotine dependence. 6. Obesity with body mass index of 39. RECOMMENDATIONS AND DISCUSSION: This 24-year-old woman presented with multiple medical issues, at this time, I recommend to continue current medications, continue symptomatic treatment. Otherwise, n.p.o. diet, proton pump inhibitors, IV fluids. I would also recommend surgical evaluation. The prognosis guarded because of multiple complex medical issues. Further recommendations to follow. A copy of dictation forwarded to Dr. Tineo who is the primary physician. MMODL / IJN: [id number] /
[2019-05-19] MEDS: MORPHINE SULFATE 4 MG/ML SYRINGE IV PRN (06:42)
[2019-05-19 07:49] LABS: Basophils # (A) 0.1 k/uL (0-0.2); Basophils % (A) 1 %; Eosinophils # (A) 0.2 k/uL (0-0.7); Eosinophils % (A) 2 %; HCT 39.7 % (34.0-46.0); HGB 13.4 gm/dL (11.4-16.0); Lymphocytes # (A) 2.9 k/uL (1.0-4.8); Lymphocytes % (A) 28 %; MCH 31.3 pg (25.0-35.0); MCHC 33.8 g/dL (31.0-37.0); MCV 92.5 fL (80.0-100.0); Mean Platelet Volume 7.3; Monocytes # (A) 0.6 k/uL (0-1.0); Monocytes % (A) 6 %; Neutrophils # (A) 6.3 k/uL (1.3-7.7); Neutrophils % (A) 62 %; Platelet Count 299 k/uL (150-450); RBC 4.29 m/uL (3.80-5.40); RDW 13.5 % (11.5-15.5); WBC 10.2 k/uL (3.8-10.6)
[2019-05-19 08:00] LABS: African American GFR (CKD) >90 (>60 ml/min/1.73 sqM); Anion Gap 9 mmol/L; Blood Urea Nitrogen 8 mg/dL (7-17); Calcium 8.3 mg/dL (8.4-10.2); Carbon Dioxide 24 mmol/L (22-30); Chloride 108 mmol/L (98-107); Glucose 87 mg/dL (74-99); Potassium 3.8 mmol/L (3.5-5.1); Sodium 141 mmol/L (137-145)
[2019-05-19] MEDS: HEPARIN SODIUM,PORCINE 5,000 UNIT/ML 1 ML VIAL SQ SCH ×2 (09:25→21:05)
[2019-05-19] MEDS: PANTOPRAZOLE 40 MG/10 ML VIAL IVP SCH (09:25)
[2019-05-19] MEDS: ONDANSETRON 4 MG/2 ML VIAL IVP PRN (12:35)
--- NOTE | 2019-05-19 13:22 | P.GSCN ---
<Genesis Amador - Last Filed: 05/19/19 13:22> History of Present Illness Consult date: 05/19/19 Reason for Consult: SBO Requesting physician: Parker Kent History of present illness: CHIEF COMPLAINT: abdominal pain HISTORY OF PRESENT ILLNESS: 24 year old female who presented to the hospital with a chief complaint of abdominal pain. She reports abdominal discomfort that started about two weeks ago. She reports over the past few days, it has worsened in severity. She reports nausea for two weeks with vomiting over the last 2 days. Reports decreased appetite. Denies change in bowel habits. Reports loose stool yesterday morning. Patient says looser stools are normal for her since her gallbladder was removed in 2011. Denies fever or chills at home. Denies sick contacts. PAST MEDICAL HISTORY: See list. PAST SURGICAL HISTORY: See list. SOCIAL HISTORY: No illicit drug use. REVIEW OF SYSTEMS: CONSTITUTIONAL: Denies fever or chills. HEENT: Denies blurred vision, vision changes, or eye pain. Denies hemoptysis CARDIOVASCULAR: Denies chest pain or pressure. RESPIRATORY: No shortness of breath. GASTROINTESTINAL: Refer to HPI for pertinent findings HEMATOLOGIC: Denies bleeding disorders. GENITOURINARY: Denies any blood in urine. SKIN: Denies pruitis. Denies rash. PHYSICAL EXAM: VITAL SIGNS: Reviewed. GENERAL: Well-developed in no acute distress. HEENT: No sclera icterus. Extraocular movements grossly intact. Moist buccal mucosa. Head is atraumatic, normocephalic. ABDOMEN: Soft. Nondistended. Tenderness with palpation to left mid abdomen and epigastric region. Positive bowel sounds. NEUROLOGIC: Alert and oriented. Cranial nerves II through XII grossly intact. LABORATORY DATA: laboratory data upon admission reveals white count 11.0. Hemoglobin 15.8. Platelet count 297. Bilirubin 0.6. AST 37. ALT 36. Lipase 56. HCG negative IMAGING: CT abdomen and pelvis: No suspicious dilation of stomach or duodenal sweep. Prominent dilated small bowel loops that are fluid filled and fecal filled in the left mid abdomen. Bowel loops are dilated to 3.5 cm. bowel prominence begins just past ligament of Trietz with distal transition anterior left mid abdomen axial image 54 with there are nondilated small bowel loops show mild to moderate wall thickening. Ileal loops are collapsed in the right abdomen. Fecal material seen in the nondistended colon. Impression: focal small bowel obstruction favored partial could be due to more distal enteritis or adhesions. ASSESSMENT: 1. Abdominal pain and nausea x 2 weeks 2. Partial small bowel obstruction, suspect secondary to enteritis rather than adhesions 3. History of cholecystectomy PLAN: 1. NPO. May have ice chips if nausea improves 2. No NG tube at this time unless patient actively vomiting 3. Continue antiemetics 4. Continue IV fluids 5. Begin Zosyn and Flagyl 6. Abdominal xray in AM 7. Repeat labs in AM 8. No surgical intervention recommended at this time. Continue with conservative measures. Nurse practitioner note has been reviewed by physician. Signing provider agrees with the documented findings, assessment, and plan of care. Past Medical History Past Medical History: No Reported History History of Any Multi-Drug Resistant Organisms: None Reported Past Surgical History: Cholecystectomy Additional Past Surgical History / Comment(s): laprascopy Past Anesthesia/Blood Transfusion Reactions: No Reported Reaction Past Psychological History: No Psychological Hx Reported Smoking Status: Former smoker Past Alcohol Use History: Occasional Past Drug Use History: None Reported Additional Drug Use History / Comment(s): pt states she stopped smoking 8 days ago - Past Family History Mother Family Medical History: No Reported History Father Family Medical History: No Reported History Medications and Allergies Home Medications Medication Instructions Recorded Confirmed Type Norethindrone [Obdulia] 0.35 mg PO DAILY 05/18/19 05/18/19 History Allergies Allergy/AdvReac Type Severity Reaction Status Date / Time procaine HCl [From Novocain] Allergy Swelling Verified 05/18/19 19:38 Surgical - Exam Vital Signs Temp Pulse Resp BP Pulse Ox 97.8 F 85 18 127/65 98 05/18/19 14:22 05/18/19 14:22 05/18/19 14:22 05/18/19 14:22 05/18/19 14:22 Results - Labs 05/19/19 07:29 05/19/19 07:29 Abnormal Lab Results - Last 24 Hours (Table) 05/18/19 05/18/19 05/19/19 Range/Units 15:00 15:00 07:29 WBC 11.0 H (3.8-10.6) k/uL Hct 46.1 H (34.0-46.0) % Chloride 108 H (98-107) mmol/L Calcium 8.3 L (8.4-10.2) mg/dL AST 37 H (14-36) U/L Diabetes panel 05/18/19 05/19/19 Range/Units 15:00 07:29 Sodium 140 141 (137-145) mmol/L Potassium 4.3 3.8 (3.5-5.1) mmol/L Chloride 106 108 H (98-107) mmol/L Carbon Dioxide 22 24 (22-30) mmol/L BUN 13 8 (7-17) mg/dL Creatinine 0.76 0.76 (0.52-1.04) mg/dL Glucose 90 87 (74-99) mg/dL Calcium 9.7 8.3 L (8.4-10.2) mg/dL AST 37 H (14-36) U/L ALT 36 (9-52) U/L Alkaline Phosphatase 81 (38-126) U/L Total Protein 7.9 (6.3-8.2) g/dL Albumin 4.6 (3.5-5.0) g/dL Calcium panel 05/18/19 05/19/19 Range/Units 15:00 07:29 Calcium 9.7 8.3 L (8.4-10.2) mg/dL Albumin 4.6 (3.5-5.0) g/dL Pituitary panel 05/18/19 05/19/19 Range/Units 15:00 07:29 Sodium 140 141 (137-145) mmol/L Potassium 4.3 3.8 (3.5-5.1) mmol/L Chloride 106 108 H (98-107) mmol/L Carbon Dioxide 22 24 (22-30) mmol/L BUN 13 8 (7-17) mg/dL Creatinine 0.76 0.76 (0.52-1.04) mg/dL Glucose 90 87 (74-99) mg/dL Calcium 9.7 8.3 L (8.4-10.2) mg/dL Adrenal panel 05/18/19 05/19/19 Range/Units 15:00 07:29 Sodium 140 141 (137-145) mmol/L Potassium 4.3 3.8 (3.5-5.1) mmol/L Chloride 106 108 H (98-107) mmol/L Carbon Dioxide 22 24 (22-30) mmol/L BUN 13 8 (7-17) mg/dL Creatinine 0.76 0.76 (0.52-1.04) mg/dL Glucose 90 87 (74-99) mg/dL Calcium 9.7 8.3 L (8.4-10.2) mg/dL Total Bilirubin 0.6 (0.2-1.3) mg/dL AST 37 H (14-36) U/L ALT 36 (9-52) U/L Alkaline Phosphatase 81 (38-126) U/L Total Protein 7.9 (6.3-8.2) g/dL Albumin 4.6 (3.5-5.0) g/dL <Joey Chaidez - Last Filed: 05/19/19 17:43> History of Present Illness History of present illness: As above. Patient with abdominal pain for the last few weeks. Only started vomiting yesterday. CAT scan reviewed. There are collapsed distal small bowel loops. Subtle thickening of the mid jejunum suspected. Suspect probable enteritis with partial small bowel obstruction. Etiology unclear but could be bacterial or viral. Patient has been having normal bowel movements she states. Keep nothing by mouth for now. Begin antibiotics. Repeat x-rays tomorrow with labs as well. Will follow. Surgical - Exam Vital Signs Temp Pulse Resp BP Pulse Ox 97.8 F 85 18 127/65 98 05/18/19 14:22 05/18/19 14:22 05/18/19 14:22 05/18/19 14:22 05/18/19 14:22 Results - Labs 05/19/19 07:29 05/19/19 07:29 Abnormal Lab Results - Last 24 Hours (Table) 05/19/19 Range/Units 07:29 Chloride 108 H (98-107) mmol/L Calcium 8.3 L (8.4-10.2) mg/dL Diabetes panel 05/19/19 Range/Units 07:29 Sodium 141 (137-145) mmol/L Potassium 3.8 (3.5-5.1) mmol/L Chloride 108 H (98-107) mmol/L Carbon Dioxide 24 (22-30) mmol/L BUN 8 (7-17) mg/dL Creatinine 0.76 (0.52-1.04) mg/dL Glucose 87 (74-99) mg/dL Calcium 8.3 L (8.4-10.2) mg/dL Calcium panel 05/19/19 Range/Units 07:29 Calcium 8.3 L (8.4-10.2) mg/dL Pituitary panel 05/19/19 Range/Units 07:29 Sodium 141 (137-145) mmol/L Potassium 3.8 (3.5-5.1) mmol/L Chloride 108 H (98-107) mmol/L Carbon Dioxide 24 (22-30) mmol/L BUN 8 (7-17) mg/dL Creatinine 0.76 (0.52-1.04) mg/dL Glucose 87 (74-99) mg/dL Calcium 8.3 L (8.4-10.2) mg/dL Adrenal panel 05/19/19 Range/Units 07:29 Sodium 141 (137-145) mmol/L Potassium 3.8 (3.5-5.1) mmol/L Chloride 108 H (98-107) mmol/L Carbon Dioxide 24 (22-30) mmol/L BUN 8 (7-17) mg/dL Creatinine 0.76 (0.52-1.04) mg/dL Glucose 87 (74-99) mg/dL Calcium 8.3 L (8.4-10.2) mg/dL
[2019-05-19] MEDS: metroNIDAZOLE-NS PMX 500 MG in SALINE 1 100ML.BAG IVPB SCH ×2 (15:41→21:05)
[2019-05-19] MEDS: PIPERACILLIN-TAZOBACTAM 3.375 GM in SODIUM CHLORIDE 0.9% 100 ML IVPB SCH (16:48)
--- NOTE | 2019-05-19 19:51 | PN ---
PROGRESS NOTE DATE OF SERVICE: 05/19/2019 This 24-year-old woman was admitted with right upper quadrant abdominal pain and possibly a small bowel obstruction. She is still complaining of some abdominal pain, especially after walking. The patient had vomiting yesterday. Dr. Chaidez saw the patient and recommended a conservative line of management. No chest pain. No palpitations. No fever. PHYSICAL EXAMINATION: Alert and oriented x3. Pulse is 60, blood pressure 100/65, respirations 16, temperature 97.7, pulse ox 99% on room air. HEENT: Conjunctivae normal. NECK: No jugular venous distention. CARDIOVASCULAR SYSTEM: S1, S2 muffled. RESPIRATORY SYSTEM: Breath sounds diminished at the bases. No rhonchi. No crackles. ABDOMEN: Soft. Mild discomfort on the right upper quadrant. No mass palpable. No guarding or rigidity. No ascites. Bowel sounds are diminished. LEGS: No edema. No swelling. NERVOUS SYSTEM: No focal deficit. LABS: CBC normal. BMP within normal limits. ASSESSMENT: 1. Right upper quadrant abdominal pain, possibly partial small bowel obstruction. 2. Increased white count. 3. Possible enteritis. 4. History of laparoscopic cholecystectomy. 5. History of laparoscopy. 6. Remote history of nicotine dependence. 7. Obesity with a body mass index of 39. RECOMMENDATIONS AND DISCUSSION: I recommend to continue current management, continue symptomatic treatment. The patient has been started on broad-spectrum IV antibiotics empirically. Closely monitor with Surgery. Further recommendations to follow. MMODL / IJN: [id number] /
[2019-05-20] MEDS: ONDANSETRON 4 MG/2 ML VIAL IVP PRN (00:40)
[2019-05-20] MEDS: metroNIDAZOLE-NS PMX 500 MG in SALINE 1 100ML.BAG IVPB SCH ×3 (06:30→21:05)
[2019-05-20] MEDS: PIPERACILLIN-TAZOBACTAM 3.375 GM in SODIUM CHLORIDE 0.9% 100 ML IVPB SCH ×4 (08:30→15:59)
[2019-05-20] MEDS: SODIUM CHLORIDE 0.9% 1,000 ML IV SCH ×5 (08:31→21:07)
[2019-05-20] MEDS: PANTOPRAZOLE 40 MG/10 ML VIAL IVP SCH (08:32)
[2019-05-20] MEDS: FLUCONAZOLE 100 MG TAB PO SCH ×2 (08:32→17:09)
[2019-05-20] MEDS: HEPARIN SODIUM,PORCINE 5,000 UNIT/ML 1 ML VIAL SQ SCH ×2 (08:32→21:05)
[2019-05-20 09:19] LABS: Basophils % (A) 0 %; Eosinophils # (A) 0.1 k/uL (0-0.7); Eosinophils % (A) 1 %; HCT 38.9 % (34.0-46.0); HGB 13.5 gm/dL (11.4-16.0); Lymphocytes # (A) 1.9 k/uL (1.0-4.8); Lymphocytes % (A) 24 %; MCH 32.4 pg (25.0-35.0); MCHC 34.8 g/dL (31.0-37.0); MCV 93.2 fL (80.0-100.0); Mean Platelet Volume 7.1; Monocytes # (A) 0.5 k/uL (0-1.0); Monocytes % (A) 6 %; Neutrophils # (A) 5.3 k/uL (1.3-7.7); Neutrophils % (A) 66 %; Platelet Count 237 k/uL (150-450); RBC 4.17 m/uL (3.80-5.40); RDW 11.9 % (11.5-15.5)
--- NOTE | 2019-05-20 09:36 | XR ---
EXAMINATION TYPE: XR abdomen 2V DATE OF EXAM: 05/20/2019 COMPARISON: 04/16/2010 INDICATION: Abdomen pain following bowel obstruction TECHNIQUE: Single view abdomen upright view FINDINGS: There is a normal bowel gas pattern. Psoas margins are normal. No organomegaly is present. No suspicious air-fluid levels or differential air-fluid levels are present. No free air is present. IMPRESSION: 1. Unremarkable Abdomen
[2019-05-20 09:40] LABS: African American GFR (CKD) >90 (>60 ml/min/1.73 sqM); Anion Gap 8 mmol/L; Blood Urea Nitrogen 9 mg/dL (7-17); Calcium 8.6 mg/dL (8.4-10.2); Carbon Dioxide 23 mmol/L (22-30); Chloride 106 mmol/L (98-107); Glucose 73 mg/dL (74-99); Sodium 137 mmol/L (137-145)
[2019-05-20] MEDS: MORPHINE SULFATE 4 MG/ML SYRINGE IV PRN (10:44)
--- NOTE | 2019-05-20 10:53 | P.PN ---
Subjective Progress Note Date: 05/20/19 Principal diagnosis: Small bowel obstruction Patient feels better today. Still nauseated. Pain is much improved however. White blood cell count is normal. No longer feels bloated. Objective - Vital Signs Vital signs: Vital Signs Temp 97.7 F 05/20/19 08:24 Pulse 76 05/20/19 08:24 Resp 16 05/20/19 08:24 BP 94/60 05/20/19 08:24 Pulse Ox 98 05/20/19 08:24 Intake & Output 05/19/19 05/20/19 05/20/19 18:59 06:59 18:59 Intake Total 240 Output Total 30 Balance 210 Intake: Oral 240 Output: Emesis 30 Other: # Voids 3 2 - Exam Abdomen: Soft, nondistended, mild piece tenderness - Labs CBC & Chem 7: 05/20/19 08:35 05/20/19 08:35 Labs: Abnormal Lab Results - Last 24 Hours (Table) 05/20/19 Range/Units 08:35 Glucose 73 L (74-99) mg/dL Assessment and Plan (1) Small bowel obstruction Narrative/Plan: 24 row female with partial small bowel obstruction likely related to underlying enteritis. Begin clear liquids. Continue antibiotics. Possible discharge tomorrow. Current Visit: Yes Status: Acute Code(s): K56.609 - UNSP INTESTNL OBST, UNSP TO PARTIAL VERSUS COMPLETE OBST SNOMED Code(s): 668637474
--- NOTE | 2019-05-20 17:58 | PN ---
PROGRESS NOTE DATE OF SERVICE: 05/20/2019 This 24-year-old woman was admitted with abdominal pain with possible partial small- bowel obstruction is being closely monitored. Dr. Chaidez from surgery is following the patient closely. X-ray abdomen showed was unremarkable. No chest pain. No palpitations. No fever. EXAM: Alert and oriented times three. Blood pressure 94/60, respirations 16, temperature 97.7, pulse ox 98% on room air. HEENT: Conjunctivae normal. NECK: No jugular venous distention. CARDIOVASCULAR: S1, S2 muffled. RESPIRATORY: Breath sounds diminished in the bases. A few rhonchi. No crackles. ABDOMEN is soft, nontender. No mass palpable. LEGS: No edema. No swelling. CENTRAL NERVOUS SYSTEM: No focal deficits. LAB: CBC, BMP noted. Glucose 73. ASSESSMENT: 1. Right upper quadrant abdominal pain possibly partial small bowel obstruction, improving. 2. Increased WBC. 3. Possible enteritis. 4. History of laparoscopic cholecystectomy. 5. History of laparoscopy. 6. Remote history of nicotine dependence. 7. Obesity with body mass index of 39. RECOMMENDATIONS AND DISCUSSION: Recommend to continue current medications, management and symptomatic treatment. Continue empiric antibiotics. Closely follow with surgery. Advance diet per surgery. Further recommendations to follow. MMODL / IJN: [id number] /
[2019-05-21] MEDS: PIPERACILLIN-TAZOBACTAM 3.375 GM in SODIUM CHLORIDE 0.9% 100 ML IVPB SCH ×2 (00:07→07:43)
[2019-05-21] MEDS: metroNIDAZOLE-NS PMX 500 MG in SALINE 1 100ML.BAG IVPB SCH (06:23)
[2019-05-21] MEDS: HEPARIN SODIUM,PORCINE 5,000 UNIT/ML 1 ML VIAL SQ SCH (07:42)
[2019-05-21] MEDS: FLUCONAZOLE 100 MG TAB PO SCH (07:42)
[2019-05-21] MEDS: PANTOPRAZOLE 40 MG/10 ML VIAL IVP SCH (07:42)
[2019-05-21 08:37] LABS: Basophils % (A) 1 %; Eosinophils # (A) 0.1 k/uL (0-0.7); Eosinophils % (A) 2 %; HCT 42.8 % (34.0-46.0); HGB 14.2 gm/dL (11.4-16.0); Lymphocytes # (A) 1.7 k/uL (1.0-4.8); Lymphocytes % (A) 26 %; MCH 31.1 pg (25.0-35.0); MCHC 33.2 g/dL (31.0-37.0); MCV 93.7 fL (80.0-100.0); Mean Platelet Volume 7.1; Monocytes # (A) 0.5 k/uL (0-1.0); Monocytes % (A) 8 %; Neutrophils % (A) 61 %; Platelet Count 289 k/uL (150-450); RBC 4.57 m/uL (3.80-5.40); RDW 11.9 % (11.5-15.5); WBC 6.5 k/uL (3.8-10.6)
[2019-05-21 09:07] LABS: African American GFR (CKD) >90 (>60 ml/min/1.73 sqM); Anion Gap 7 mmol/L; Blood Urea Nitrogen 8 mg/dL (7-17); Calcium 8.8 mg/dL (8.4-10.2); Carbon Dioxide 24 mmol/L (22-30); Chloride 107 mmol/L (98-107); Glucose 88 mg/dL (74-99); Potassium 4.2 mmol/L (3.5-5.1); Sodium 138 mmol/L (137-145)
[2019-05-21 09:34] VITALS: BP 110/71; PULSE 61; RESP 20; TEMP 98
--- NOTE | 2019-05-21 11:03 | P.PN ---
Subjective Progress Note Date: 05/21/19 Principal diagnosis: Small bowel obstruction Patient doing well today. Denies pain. Tolerating liquids. No nausea or vomiting. She did have a bowel movement today. Objective - Vital Signs Vital signs: Vital Signs Temp 98.0 F 05/21/19 08:31 Pulse 61 05/21/19 08:31 Resp 20 05/21/19 08:31 BP 110/71 05/21/19 08:31 Pulse Ox 96 05/21/19 08:31 Intake & Output 05/20/19 05/21/19 05/21/19 18:59 06:59 18:59 Intake Total 480 Balance 480 Intake: Oral 480 Other: # Voids 2 1 # Bowel Movements 1 - Exam Abdomen: Soft, nontender, nondistended - Labs CBC & Chem 7: 05/21/19 08:08 05/21/19 08:08 Assessment and Plan (1) Small bowel obstruction Narrative/Plan: Patient doing well at this time. Advance diet. May discharge tolerates. Follow-up with PCP post discharge. Follow-up with myself if any ongoing symptoms. Current Visit: Yes Status: Acute Code(s): K56.609 - UNSP INTESTNL OBST, UNSP TO PARTIAL VERSUS COMPLETE OBST SNOMED Code(s): 064070936
--- NOTE | 2019-05-22 01:57 | DS ---
DISCHARGE SUMMARY FINAL DIAGNOSES: 1. Abdominal pain with right upper quadrant abdominal pain with possible partial small bowel obstruction, improved. 2. Increased WBC, improved. 3. Possible enteritis. 4. History of laparoscopic cholecystectomy. 5. History of laparoscopy. 6. Remote history of nicotine dependence. 7. Obesity with body mass of 39. DISCHARGE DISPOSITION: The patient will be discharged in stable condition with guarded prognosis. Dr. Chaidez cleared the patient for discharge. HISTORY OF PRESENT ILLNESS: This 24-year-old woman with a past medical history of multiple medical problems including right upper quadrant abdominal pain suspicious for possible partial small bowel obstruction, treated symptomatically, improved significantly. On exam, vitals are stable. Cardiovascular: S1, S2. Abdomen soft. Nervous system: No focal deficits. DISCHARGE ADVICE AND MEDICATIONS: 1. Diet is cardiac diet. 2. Activity limited until followup. 3. Follow up with Dr. Chaidez p.r.n. 4. Follow up with Dr. Tineo in 1 week. DISCHARGE MEDICATIONS: 1. Obdulia 0.35 mg daily. 2. Flagyl 500 mg p.o. q.8h. 3. Levaquin 500 mg p.o. daily for 5 days. 4. Tylenol p.r.n. Once again, the patient being discharged in stable condition with guarded prognosis. MMODL / IJN: [id number] /
== END 2019-05-21 13:51 | disposition home or self-care (01) | DRG 390 ==
LOC: EC 14:13 → 6PED 17:28
PROVIDERS: ADMIT Internal Medicine; ATTEND Internal Medicine
DX: K56.600 Partial intestinal obstruction, unspecified as to cause (principal); K52.9 Noninfective gastroenteritis and colitis, unspecified; E66.9 Obesity, unspecified; Z68.39 Body mass index [BMI] 39.0-39.9, adult; Z87.891 Personal history of nicotine dependence; Z90.49 Acquired absence of other specified parts of digestive tract; Z88.4 Allergy status to anesthetic agent; D72.829 Elevated white blood cell count, unspecified
CPT/HCPCS: 36415; 74019; 74177; 80048; 80053; 81003; 81025; 83605; 83690; 84703; 85025; 96361; 96374; 96375; 99285

== ENCOUNTER → 2020-12-17 | Outpatient (CLI) | payer OTHER ==
--- NOTE | 2020-12-17 14:35 | CT ---
EXAMINATION TYPE: CT abdomen pelvis w con DATE OF EXAM: 12/17/2020 HISTORY: Pelvic and perineal pain, right lower quadrant pain for a few months. CT DLP: 1508mGycm Automated Exposure Control for Dose Reduction was Utilized. CONTRAST: CT scan of the abdomen and pelvis is performed with oral and with IV Contrast, patient injected with 100 mL of Isovue 300. COMPARISON: CT abdomen and pelvis May 18, 2019 FINDINGS: LUNG BASES: No significant abnormality is appreciated. LIVER/GB: Cholecystectomy clips are redemonstrated. PANCREAS: No significant abnormality is seen. SPLEEN: No significant abnormality is seen. ADRENALS: No significant abnormality is seen. KIDNEYS: Symmetric cortical medullary uptake and excretion without hydronephrosis seen bilaterally. BOWEL: Oral contrast reaches level of the mid transverse colon. No suspicious small or large bowel di latation. Appendix within normal limits from base of cecum near coronal image 42 and axial image 55. UTERUS/ADNEXA: Anteverted uterus. Bilateral ovaries within normal limits in size image 64 LYMPH NODES: No greater than 1cm abdominal or pelvic lymph nodes are appreciated. OSSEOUS STRUCTURES: No significant abnormality is seen. OTHER: No significant additional abnormality is seen. IMPRESSION: No CT evidence for acute appendicitis. No significant new or acute finding is seen to acc ount for patient's clinical symptoms on today's study.
== END | disposition home or self-care (01) ==
LOC: RADCTMAIN 12:13
PROVIDERS: ATTEND Family Medicine
DX: R10.31 Right lower quadrant pain (principal)
CPT/HCPCS: 74177; Q9967 ×2

== ENCOUNTER → 2021-07-16 | Outpatient (CLI) | payer OTHER ==
--- NOTE | 2021-07-16 14:42 | MM ---
Reason for exam: clinical finding. Indicated problem(s): pain in the left breast. Physical Findings: Nurse did not find any significant physical abnormalities on exam. MG Diagnostic Mammo w CAD GERMAN Bilateral CC and MLO view(s) were taken. The breast tissue is heterogeneously dense. This may lower the sensitivity of mammography. There is no discrete abnormality including area of concern. These results were verbally communicated with the patient and result sheet given to the patient on 07/16/21. ASSESSMENT: Incomplete: need additional imaging evaluation, BI-RAD 0 RECOMMENDATION: Ultrasound of the left breast. Manage patient on a clinical basis.
--- NOTE | 2021-07-16 14:44 | USB ---
Reason for exam: additional evaluation requested from abnormal screening. US Breast Limited LT Left limited breast ultrasound including focal area of concern, retroareolar and axilla demonstrates duct ectasia at the posterior nipple. These results were verbally communicated with the patient and result sheet given to the patient on 07/16/21. ASSESSMENT: Benign, BI-RAD 2 RECOMMENDATION: Routine screening mammogram of both breasts at age 38. Manage patient on a clinical basis.
== END | disposition home or self-care (01) ==
LOC: RADMAMWWP 13:39
PROVIDERS: ATTEND Family Medicine
DX: N60.42 Mammary duct ectasia of left breast (principal)
CPT/HCPCS: 77066

== ENCOUNTER 2021-09-09 09:38 | Emergency (ER) | payer OTHER ==
[2021-09-09 09:44] VITALS: RESP 18; TEMP 98.1
[2021-09-09] MEDS ORDERED: SODIUM CHLORIDE 0.9% 1,000 ML IV STA ×2 (09:58→11:16)
--- NOTE | 2021-09-09 10:09 | ED ---
General Adult HPI - General Chief complaint: Vaginal Bleeding Stated complaint: possible miscarriage Time Seen by Provider: 09/09/21 09:51 Source: patient, RN notes reviewed Mode of arrival: ambulatory Limitations: no limitations - History of Present Illness Initial comments: Patient 26-year-old female who is G3, P1 with one previous , presented to the emergency room today with a chief complaint of vaginal bleeding. Patient does admit to some lower abdominal cramping that started earlier this morning proxy 3am. States that when she used the restroom she noticed a little bit of blood in the toilet. She is using a pad but states she's not noticed any blood on it. Patient admits that the cramping is minimal at this time. She states that she is approximately 8 weeks by last pressure cycle. She denies any other complaints or any other symptoms at this time. Patient denies any recent fever, chills, shortness of breath, chest pain, back pain, nausea or vomiting, numbness or tingling, dysuria or hematuria, constipation or diarrhea, headaches or visual changes, or any other complaints. - Related Data Home Medications Medication Instructions Recorded Confirmed Norethindrone [Obdulia] 0.35 mg PO DAILY 05/18/19 05/18/19 Previous Rx's Medication Instructions Recorded Acetaminophen Tab [Tylenol] 500 mg PO Q6HR PRN tab 05/21/19 metroNIDAZOLE [Flagyl] 500 mg PO Q8HR #9 tab 05/21/19 Allergies Allergy/AdvReac Type Severity Reaction Status Date / Time procaine HCl [From Novocain] Allergy Swelling Verified 05/18/19 19:38 Review of Systems ROS Statement: Those systems with pertinent positive or pertinent negative responses have been documented in the HPI. ROS Other: All systems not noted in ROS Statement are negative. Past Medical History Past Medical History: Asthma History of Any Multi-Drug Resistant Organisms: None Reported Past Surgical History: Cholecystectomy Additional Past Surgical History / Comment(s): laprascopy Past Anesthesia/Blood Transfusion Reactions: No Reported Reaction Past Psychological History: No Psychological Hx Reported Smoking Status: Never smoker Past Alcohol Use History: Occasional Past Drug Use History: None Reported - Past Family History Mother Family Medical History: No Reported History Father Family Medical History: No Reported History General Exam - General Exam Comments Initial Comments: General: The patient is awake and alert, in no distress, and does not appear acutely ill. Eye: There is normal conjunctiva bilaterally. No signs of icterus. Ears, nose, mouth and throat: There are moist mucous membranes and no oral le sions. Neck: The neck is supple, there is no tenderness or JVD. Cardiovascular: There is a regular rate and rhythm. No murmur, rub or gallop is appreciated. Respiratory: Lungs are clear to auscultation, respirations are non-labored, breath sounds are equal. No wheezes, stridor, rales, or rhonchi. Gastrointestinal: Soft on palpation nontender. No rebound, guarding or CVA tenderness. Musculoskeletal: Normal ROM, no tenderness. Strength 5/5. Sensation intact. Neurological: A&O x 3. CN II-XII intact, There are no obvious motor or sensory deficits. Coordination appears grossly intact. Speech is normal. Skin: Skin is warm and dry and no rashes or lesions are noted. Psychiatric: Cooperative, appropriate mood & affect, normal judgment. Limitations: no limitations Course Vital Signs 09/09/21 09:40 Temperature 98.1 F Pulse Rate 70 Respiratory 18 Rate Blood Pressure 123/85 O2 Sat by Pulse 100 Oximetry Medical Decision Making - Medical Decision Making She reexamined at this time shows an comfortably. Patient's ultrasound shows single IUP measuring 8 weeks 2 days. Patient's Rh+. Patient doing well at this time will be discharged home to follow-up the [facility]. Patient is advised return to emergency room symptoms increase worsen or for any other concerns. She states understanding and is in agreement. - Lab Data Result diagrams: 09/09/21 10:10 09/09/21 10:10 Lab Results 09/09/21 09/09/21 09/09/21 Range/Units 10:10 10:10 10:10 WBC 9.5 (3.8-10.6) k/uL RBC 4.59 (3.80-5.40) m/uL Hgb 14.9 (11.4-16.0) gm/dL Hct 44.0 (34.0-46.0) % MCV 95.9 (80.0-100.0) fL MCH 32.6 (25.0-35.0) pg MCHC 34.0 (31.0-37.0) g/dL RDW 12.2 (11.5-15.5) % Plt Count 299 (150-450) k/uL MPV 7.5 Neutrophils % 69 % Lymphocytes % 24 % Monocytes % 5 % Eosinophils % 1 % Basophils % 1 % Neutrophils # 6.5 (1.3-7.7) k/uL Lymphocytes # 2.2 (1.0-4.8) k/uL Monocytes # 0.4 (0-1.0) k/uL Eosinophils # 0.1 (0-0.7) k/uL Basophils # 0.1 (0-0.2) k/uL Sodium 134 L (137-145) mmol/L Potassium 3.9 (3.5-5.1) mmol/L Chloride 106 (98-107) mmol/L Carbon Dioxide 19 L (22-30) mmol/L Anion Gap 9 mmol/L BUN 8 (7-17) mg/dL Creatinine 0.61 (0.52-1.04) mg/dL Est GFR (CKD-EPI)AfAm >90 (>60 ml/min/1.73 sqM) Est GFR (CKD-EPI)NonAf >90 (>60 ml/min/1.73 sqM) Glucose 85 (74-99) mg/dL Calcium 9.3 (8.4-10.2) mg/dL Total Bilirubin 0.5 (0.2-1.3) mg/dL AST 23 (14-36) U/L ALT 23 (4-34) U/L Alkaline Phosphatase 67 (38-126) U/L Total Protein 7.2 (6.3-8.2) g/dL Albumin 4.1 (3.5-5.0) g/dL Blood Type O Positive Blood Type Recheck O Pos Bld Type Recheck Status No Disposition Clinical Impression: Threatened Disposition: HOME SELF-CARE Condition: Good Instructions (If sedation given, give patient instructions): Threatened Miscarriage (ED) Additional Instructions: Please use medication as discussed. Please follow-up with family doctor /[facility] in the next 2 days of symptoms have not improved. Please return to emergency room if the symptoms increase or worsen or for any other concerns. Is patient prescribed a controlled substance at d/c from ED?: No Referrals: Sheyla Tineo DO [Primary Care Provider] - 1-2 days Time of Disposition: 11:55
[2021-09-09 10:57] LABS: Basophils # (A) 0.1 k/uL (0-0.2); Basophils % (A) 1 %; Eosinophils # (A) 0.1 k/uL (0-0.7); Eosinophils % (A) 1 %; HGB 14.9 gm/dL (11.4-16.0); Lymphocytes # (A) 2.2 k/uL (1.0-4.8); Lymphocytes % (A) 24 %; MCH 32.6 pg (25.0-35.0); MCV 95.9 fL (80.0-100.0); Mean Platelet Volume 7.5; Monocytes # (A) 0.4 k/uL (0-1.0); Monocytes % (A) 5 %; Neutrophils # (A) 6.5 k/uL (1.3-7.7); Neutrophils % (A) 69 %; Platelet Count 299 k/uL (150-450); RBC 4.59 m/uL (3.80-5.40); RDW 12.2 % (11.5-15.5); WBC 9.5 k/uL (3.8-10.6)
[2021-09-09 11:06] LABS: ALT 23 U/L (4-34); AST 23 U/L (14-36); African American GFR (CKD) >90 (>60 ml/min/1.73 sqM); Albumin 4.1 g/dL (3.5-5.0); Alkaline Phosphatase 67 U/L (38-126); Anion Gap 9 mmol/L; Blood Urea Nitrogen 8 mg/dL (7-17); Calcium 9.3 mg/dL (8.4-10.2); Carbon Dioxide 19 mmol/L (22-30); Chloride 106 mmol/L (98-107); Glucose 85 mg/dL (74-99); Non-African American GFR(CKD) >90 (>60 ml/min/1.73 sqM); Potassium 3.9 mmol/L (3.5-5.1); Sodium 134 mmol/L (137-145); Total Bilirubin 0.5 mg/dL (0.2-1.3); Total Protein 7.2 g/dL (6.3-8.2)
--- NOTE | 2021-09-09 11:23 | US ---
EXAMINATION TYPE: Transabdominal DATE OF EXAM: 09/09/2021 10:59 AM COMPARISON: NONE CLINICAL HISTORY: bleeding. Patient states waking up with cramping and spotting this morning. EXAM PERFORMED: Transabdominal (TA) EXAM MEASUREMENTS: GESTATIONAL AGE / DATING Physician Established: Not yet established Dates by LMP: (8 weeks/5 days) EDC: 04/16/2022 Dates by First Scan: No previous this is first scan Dates by Current Scan for: (8 weeks/2 days) EDC: 04/19/2022 MATERNAL ANATOMY Uterus: 9.0 x 5.1 x 6.4 cm Right Ovary: 3.7 x 1.7 x 2.3 cm Left Ovary: 2.8 x 2.0 x 1.8 cm Post CDS / Adnexa: WNL Presence of free fluid: No Presence of subchorionic bleed: No GESTATION / SURVEY CRL: (8 weeks/2 days) MSD: WNL as seen Yolk Sac (normal less than 6mm): 0.42 cm Heart Rate: 170 bpm Rhythm: Normal IUP: Viable IUP Date of LMP: 07/10/2021 Beta HcG (if available): Not available at this time IMPRESSION: Single viable intrauterine corresponding to ultrasound age 8 weeks 2 days with estimated da te of delivery 04/19/2022 today's exam
[2021-09-09 11:56] LABS: HCG,Quantitative Serum 51649.8 mIU/mL
[2021-09-09 12:39] VITALS: BP 123/74; PULSE 77
== END 2021-09-09 12:35 | disposition home or self-care (01) ==
LOC: EC 09:38
DX: O20.0 Threatened abortion (principal); J45.909 Unspecified asthma, uncomplicated; Z3A.08 8 weeks gestation of pregnancy; Z90.49 Acquired absence of other specified parts of digestive tract
CPT/HCPCS: 36415; 76801; 80053; 84702; 85025; 86900; 86901; 96360; 96361; 99284